=== PATIENT | male | born 1950 | race Caucasian/White ===

== ENCOUNTER → 2016-05-14 | Outpatient (REF) | payer OTHER, BC ==
[~2016-05-14] MED LIST: AMOX875T2 PO
[2016-05-14 13:52] LABS: CARCINOEMBRYONIC ANTIGEN 50.9 NG/ML (<2.5)
== END ==
LOC: M LAB REF 12:34
PROVIDERS: ATTEND Internal Medicine Medical Oncology
DX: C18.9 Malignant neoplasm of colon, unspecified (principal)

== ENCOUNTER → 2016-05-28 | Outpatient (REF) | payer OTHER, BC ==
[2016-05-28 13:07] LABS: CARCINOEMBRYONIC ANTIGEN 46.3 NG/ML (<2.5)
== END ==
LOC: M LAB REF 12:14
PROVIDERS: ATTEND Internal Medicine Medical Oncology
DX: C18.9 Malignant neoplasm of colon, unspecified (principal)

== ENCOUNTER → 2016-06-11 | Outpatient (REF) | payer OTHER, BC ==
[2016-06-11 13:12] LABS: CARCINOEMBRYONIC ANTIGEN 47.9 NG/ML (<2.5)
== END ==
LOC: M LAB REF 12:31
PROVIDERS: ATTEND Internal Medicine Medical Oncology
DX: C18.9 Malignant neoplasm of colon, unspecified (principal)

== ENCOUNTER → 2016-07-16 | Outpatient (REF) | payer OTHER, BC ==
[2016-07-16 14:17] LABS: CARCINOEMBRYONIC ANTIGEN 66.5 NG/ML (<2.5)
[2016-07-16 14:18] LABS: FOLATE > 24.0 NG/ML (>5.4); VITAMIN B12 LEVEL 873 PG/ML (247-911)
== END ==
LOC: M LAB REF 12:28
PROVIDERS: ATTEND Internal Medicine Medical Oncology
DX: C18.9 Malignant neoplasm of colon, unspecified (principal)

== ENCOUNTER → 2016-08-13 | Outpatient (REF) | payer OTHER, BC ==
[2016-08-13 13:46] LABS: CARCINOEMBRYONIC ANTIGEN 87.8 NG/ML (<2.5)
== END ==
LOC: M LAB REF 12:42
PROVIDERS: ATTEND Internal Medicine Medical Oncology
DX: C18.9 Malignant neoplasm of colon, unspecified (principal)

== ENCOUNTER → 2016-08-15 | Outpatient (REF) | payer OTHER, BC | LOC: M LAB REF 12:47 | PROVIDERS: ATTEND Internal Medicine Medical Oncology | DX: C18.9 Malignant neoplasm of colon, unspecified (principal) ==

== ENCOUNTER → 2016-09-10 | Outpatient (REF) | payer OTHER, BC ==
[2016-09-10 16:25] LABS: CARCINOEMBRYONIC ANTIGEN 142.7 NG/ML (<2.5)
== END ==
LOC: M LAB REF 13:01
PROVIDERS: ATTEND Internal Medicine Medical Oncology
DX: C18.9 Malignant neoplasm of colon, unspecified (principal)

== ENCOUNTER → 2016-09-24 | Outpatient (REF) | payer OTHER, BC ==
[2016-09-24 13:52] LABS: CARCINOEMBRYONIC ANTIGEN 195.3 NG/ML (<2.5)
== END ==
LOC: M LAB REF 12:25
PROVIDERS: ATTEND Internal Medicine Medical Oncology
DX: C18.9 Malignant neoplasm of colon, unspecified (principal)

== ENCOUNTER → 2016-10-23 | Outpatient (REF) | payer OTHER, BC ==
[2016-10-25 10:43] LABS: CARCINOEMBRYONIC ANTIGEN 201.3 NG/ML (<2.5)
== END ==
LOC: M LAB REF 12:26
PROVIDERS: ATTEND Internal Medicine Medical Oncology
DX: C18.9 Malignant neoplasm of colon, unspecified (principal)

== ENCOUNTER 2016-11-21 10:19 | Outpatient (CLI) | payer OTHER ==
[~2016-11-21] VITALS: Ht 170.2 cm; Wt 55.2 kg
[2016-11-21 10:41] VITALS: BP 120/58
[2016-11-21] MEDS ORDERED: ACETAMINOPHEN TAB 650MG DOSE (2X325MG) PO ONE (11:00)
[2016-11-21] MEDS ORDERED: diphenhydrAMINE 50 MG CAP PO ONE (11:00)
--- NOTE | 2016-11-22 00:26 | ECGEPIP ---
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
== END 2016-11-21 13:42 | disposition other institution (70) ==
LOC: M OPCLI4PV 10:19 → M MSPAV 10:35 → M OPCLI4PV 13:42
PROVIDERS: ATTEND Internal Medicine Medical Oncology
DX: D64.9 Anemia, unspecified (principal); C18.9 Malignant neoplasm of colon, unspecified; C78.7 Secondary malignant neoplasm of liver and intrahepatic bile duct; C78.00 Secondary malignant neoplasm of unspecified lung; I48.91 Unspecified atrial fibrillation
CPT/HCPCS: 36415; 36430; 71010; 80048; 80076; 82378; 82550; 82553; 83880; 84439; 84443; 84484; 85025; 85610; 86140; 86301; 86850; 86880; 86900; 86901; 86920; 87040; 93005; 93041; 94760; 96374; 96375; 96376; 99285; J1160; P9016

== ENCOUNTER 2016-11-21 13:49 | Emergency (ER) | payer OTHER ==
[~2016-11-21] VITALS: Ht 170.2 cm; Wt 56.4 kg
[2016-11-21] MEDS ORDERED: DIGOXIN INJ 0.5 MG/2 ML AMP (J1160) IV STA (14:07)
[2016-11-21] MEDS ORDERED: METOPROLOL 5 MG/5 ML VIAL IV SCH (14:15)
[2016-11-21] MEDS ORDERED: NS 500 ML IV ONE (14:15)
[2016-11-21 14:50] LABS: INR 1.26
[2016-11-21 14:51] LABS: ADD MANUAL DIFFER YES; DIFF SLIDE NUMBER 243; MEAN CORPUSCULAR HEMOGLOBIN 36.2 pg (27.0-33.0); MEAN CORPUSCULAR HGB CONC 31.9 g/dl (32.0-36.5); MEAN CORPUSCULAR VOLUME 113.3 fl (80.0-96.0); RED CELL DISTRIBUTION WIDTH 18.5 % (11.5-14.5); WHITE BLOOD COUNT 6.1 K/mm3 (4.0-10.0)
[2016-11-21 15:04] LABS: PLATELET COUNT, AUTOMATED 80 k/mm3 (150-450)
[2016-11-21 15:07] LABS: ANISOCYTOSIS 3+
[2016-11-21 15:08] LABS: ALBUMIN 2.2 GM/DL (3.2-5.2); ALBUMIN/GLOBULIN RATIO 0.43 (1.00-1.93); ALKALINE PHOSPHATASE 144 U/L (45-117); ALT/SGPT 26 U/L (12-78); ANION GAP 6 MEQ/L (8-16); AST/SGOT 43 U/L (15-37); BILIRUBIN,DIRECT 0.4 MG/DL (0.0-0.2); BILIRUBIN,TOTAL 0.9 MG/DL (0.2-1.0); BLOOD UREA NITROGEN 12 MG/DL (7-18); CALCIUM LEVEL 7.9 MG/DL (8.8-10.2); CARBON DIOXIDE LEVEL 28 MEQ/L (21-32); CHLORIDE LEVEL 105 MEQ/L (98-107); CREATININE FOR GFR 0.42 MG/DL (0.70-1.30); FREE T4 2.02 NG/DL (0.76-1.46); GLOMERULAR FILTRATION RATE > 60.0 (>49); GLUCOSE, FASTING 100 MG/DL (80-110); HYPOCHROMASIA 2+; POLYCHROMASIA 1+; POTASSIUM SERUM 3.3 MEQ/L (3.5-5.1); SODIUM LEVEL 139 MEQ/L (136-145); TOTAL PROTEIN 7.3 GM/DL (6.4-8.2)
--- NOTE | 2016-11-21 15:12 | REP ---
PORTABLE CHEST: AP portable view of the chest is performed and compared to prior study of 03/27/2015. Chronic interstitial densities are seen bilaterally with no acute infiltrate or pleural effusion. The heart is normal in size. There is calcification of the thoracic aorta. Left Mediport catheter is seen with the tip in the right atrium. IMPRESSION: Chronic interstitial changes with no acute infiltrate. Signed by Cl Vela MD 11/21/2016 05:58 P
[2016-11-21] MEDS ORDERED: METOPROLOL 5 MG/5 ML VIAL IV STA (15:45)
[2016-11-21 16:14] VITALS: BP 106/73
[2016-11-21] MEDS ORDERED: SODIUM CHLORIDE 0.9% INJ 10 ML SYR IV PRN (16:30)
[2016-11-21 17:01] VITALS: BP 140/64
[2016-11-22] MEDS ORDERED: SODIUM CHLORIDE 0.9% INJ 10 ML SYR IV SCH (09:00)
== END 2016-11-21 17:03 | disposition home or self-care (01) ==
LOC: M ED 13:49
DX: I48.91 Unspecified atrial fibrillation (principal); C18.9 Malignant neoplasm of colon, unspecified; C78.7 Secondary malignant neoplasm of liver and intrahepatic bile duct; C78.00 Secondary malignant neoplasm of unspecified lung

== ENCOUNTER → 2016-11-21 | Outpatient (REF) | payer OTHER ==
[2016-11-22 11:25] LABS: CARCINOEMBRYONIC ANTIGEN 150.5 NG/ML (<2.5)
== END ==
LOC: M LAB REF 13:05
PROVIDERS: ATTEND Internal Medicine Medical Oncology
DX: C18.9 Malignant neoplasm of colon, unspecified (principal); D64.9 Anemia, unspecified